=== PATIENT | female | born 1965 | race Caucasian/White ===

== ENCOUNTER 2017-09-13 21:16 | Inpatient (IN) | payer BC, OTHER ==
[~2017-09-13] VITALS: Ht 154.9 cm; Wt 93.5 kg
[~2017-09-13 21:16] MED LIST: CELEBREX200 MG PO; COZAAR25 MG PO; CYMBALTA60 MG PO; DESYREL100 MG PO; GLUCOPHAGE XR,500 MG PO; NEURONTIN600 MG PO; PARAFON FORTE500 MG PO; PROTONIX40 MG PO; WELLBUTRIN XL300 MG PO; ZANTAC150 MG PO
[2017-09-14 07:41] VITALS: BP 115/67
[2017-09-14 07:43] LABS: HEMATOCRIT 41.8 % (36.0-46.0); HEMOGLOBIN 14.3 G/DL (11.9-15.5); MCH 31.5 PG (29.0-34.0); MCHC 34.2 G/DL (30.0-36.0); MCV 92.1 FL (83-99); PLATELET COUNT 208 K/uL (156-360); RBC DIS.WIDTH-CV 12.3 % (11.8-14.6); RBC DIS.WIDTH-SD 41.4 % (39-53); RED BLOOD COUNT 4.54 M/uL (3.80-5.20); WHITE BLOOD COUNT 6.6 K/uL (4.1-10.2)
[2017-09-14 15:23] VITALS: BP 141/94
[2017-09-14 19:20] VITALS: BP 150/85
[2017-09-14 23:25] VITALS: BP 133/72
[2017-09-15 03:30] VITALS: BP 147/72
[2017-09-15 05:57] LABS: HEMATOCRIT 39.8 % (36.0-46.0); HEMOGLOBIN 13.5 G/DL (11.9-15.5); MCH 30.9 PG (29.0-34.0); MCHC 33.9 G/DL (30.0-36.0); MCV 91.1 FL (83-99); PLATELET COUNT 181 K/uL (156-360); RBC DIS.WIDTH-CV 11.9 % (11.8-14.6); RBC DIS.WIDTH-SD 39.3 % (39-53); RED BLOOD COUNT 4.37 M/uL (3.80-5.20); WHITE BLOOD COUNT 9.9 K/uL (4.1-10.2)
[2017-09-15 06:19] LABS: CHLORIDE 98 MEQ/L (99-109); CREATININE 0.8 MG/DL (0.6-1.3); GFR ESTIMATE (CALCULATED) > 59 mL/min/; GLUCOSE 99 mg/dL (70-99); POTASSIUM 4.7 MEQ/L (3.7-5.4); SODIUM 134 MEQ/L (136-147); UREA NITROGEN (BUN) 10 mg/dL (9-23)
[2017-09-15 07:25] VITALS: BP 143/81
[2017-09-15 11:02] VITALS: BP 144/85
[2017-09-15] MEDS ORDERED: COLACE100 MG PO (13:03)
[2017-09-15] MEDS ORDERED: ZOFRAN ODT8 MG PO (13:03)
[2017-09-15] MEDS ORDERED: DILAUDID4 MG PO (13:03)
[2017-09-15 15:47] VITALS: BP 150/80
[2017-09-15 19:16] VITALS: BP 148/87
[2017-09-15 23:23] VITALS: BP 150/76
[2017-09-16 03:15] VITALS: BP 142/72
[2017-09-16 06:47] LABS: HEMOGLOBIN 14.3 G/DL (11.9-15.5); MCH 30.6 PG (29.0-34.0); MCV 89.7 FL (83-99); PLATELET COUNT 186 K/uL (156-360); RBC DIS.WIDTH-SD 39.5 % (39-53); RED BLOOD COUNT 4.68 M/uL (3.80-5.20); WHITE BLOOD COUNT 7.6 K/uL (4.1-10.2)
[2017-09-16 07:10] LABS: CHLORIDE 98 MEQ/L (99-109); CREATININE 0.8 MG/DL (0.6-1.3); GFR ESTIMATE (CALCULATED) > 59 mL/min/; GLUCOSE 92 mg/dL (70-99); POTASSIUM 4.3 MEQ/L (3.7-5.4); SODIUM 137 MEQ/L (136-147); UREA NITROGEN (BUN) 10 mg/dL (9-23)
[2017-09-16 08:57] VITALS: BP 123/73
[2017-09-16 16:24] VITALS: BP 139/85
== END 2017-09-16 16:36 | disposition home or self-care (01) | DRG 621 ==
LOC: ENRESERV 21:16 → 2SOUTH 09-14 07:03 → 2EAST 09-14 07:03 → 2SOUTH 09-14 08:19 → ENRESERV 09-14 08:22 → 2SOUTH 09-14 09:58 → ENRESERV 09-14 14:46 → 2SOUTH 09-14 14:52 → 2EAST 09-14 15:00 → 2SOUTH 09-14 16:15 → 2EAST 09-16 16:36
PROVIDERS: Surgery
DX: E66.01 Morbid (severe) obesity due to excess calories (principal); Z68.39 Body mass index [BMI] 39.0-39.9, adult; K66.0 Peritoneal adhesions (postprocedural) (postinfection); K76.0 Fatty (change of) liver, not elsewhere classified; E78.5 Hyperlipidemia, unspecified; K21.9 Gastro-esophageal reflux disease without esophagitis; I10 Essential (primary) hypertension; K58.9 Irritable bowel syndrome, unspecified; F43.10 Post-traumatic stress disorder, unspecified; R73.03 Prediabetes; M79.7 Fibromyalgia; F32.9 Major depressive disorder, single episode, unspecified; M19.90 Unspecified osteoarthritis, unspecified site; F41.9 Anxiety disorder, unspecified
CPT/HCPCS: 80048; 82948; 85027; C9113; J0131; J0330; J1100; J1644; J2250; J2405; J2710; J3010; J3480; J7643; S0074